=== PATIENT | female | born 1995 | race Two or more races ===

== ENCOUNTER 2017-01-02 23:40 | Emergency (ER) | payer MEDICAID ==
--- NOTE | 2017-01-03 01:06 | ER Document Report ---
ED GI/ - General Chief Complaint: Abdominal Pain Stated Complaint: ABDOMINAL PAIN Time seen by provider: 01:06 Mode of Arrival: Ambulatory Information source: Patient TRAVEL OUTSIDE OF THE [place] IN LAST 30 DAYS: No - HPI Patient complains to provider of: Dysuria, Pelvic pain Onset: Just prior to arrival Timing/Duration: Sudden Quality of pain: Achy, Fullness, Pressure Severity at maximum: Moderate Severity in ED: Moderate Pain Level: 3 Location: Suprapubic, Pelvis Vaginal bleeding (Compared to normal period): None Associated symptoms: Dysuria, Nausea Exacerbated by: Movement Relieved by: Denies Similar symptoms previously: No Recently seen / treated by doctor: No Notes: 01/03/17 02:30 Patient is a 21-year-old female presenting to the emergency room complaining of pain and pressure in her pelvis and suprapubic region, as well as nausea, states her symptoms started this evening after intercourse, she does report painful urination, states she had a small bowel movement this evening as well and noted a small mom blood when wiping, she denies any diarrhea, no fevers, no vaginal discharge, no history of similar symptoms previously - Related Data Allergies/Adverse Reactions: No Known Allergies Allergy (Unverified 01/02/17 23:53) Past Medical History - General Information source: Patient - Social History Smoking Status: Never Smoker Chew tobacco use (# tins/day): No Frequency of alcohol use: None Drug Abuse: None Family History: Reviewed & Not Pertinent Patient has suicidal ideation: No Patient has homicidal ideation: No Renal/ Medical History: Denies: Hx Peritoneal Dialysis Review of Systems - Review of Systems Constitutional: No symptoms reported EENT: No symptoms reported Cardiovascular: No symptoms reported Respiratory: No symptoms reported Gastrointestinal: See HPI Genitourinary: See HPI Female Genitourinary: See HPI Musculoskeletal: No symptoms reported Skin: No symptoms reported Hematologic/Lymphatic: No symptoms reported Neurological/Psychological: No symptoms reported -: Yes All other systems reviewed and negative Physical Exam - Vital signs Vitals: Temp Pulse Resp BP Pulse Ox 98.0 F 98 H 18 123/69 100 01/02/17 23:46 01/02/17 23:46 01/02/17 23:46 01/02/17 23:46 01/02/17 23:46 Interpretation: Normal - General General appearance: Appears well, Alert - HEENT Head: Normocephalic, Atraumatic Eyes: Normal Pupils: PERRL - Respiratory Respiratory status: No respiratory distress Chest status: Nontender Breath sounds: Normal Chest palpation: Normal - Cardiovascular Rhythm: Regular Heart sounds: Normal auscultation Murmur: No - Abdominal Inspection: Normal Distension: No distension Bowel sounds: Normal Tenderness: Tender - Suprapubic Organomegaly: No organomegaly - Back Back: Normal, Nontender - Extremities General upper extremity: Normal inspection, Nontender, Normal color, Normal ROM , Normal temperature General lower extremity: Normal inspection, Nontender, Normal color, Normal ROM , Normal temperature, Normal weight bearing. No: Ruthie's sign - Neurological Neuro grossly intact: Yes Cognition: Normal Orientation: AAOx4 Leisenring Coma Scale Eye Opening: Spontaneous [place]isen[place] Coma Scale Verbal: Oriented Dwayne Coma Scale Motor: Obeys Commands Leisenring Coma Scale Total: 15 Speech: Normal Motor strength normal: LUE, RUE, LLE, RLE Sensory: Normal - Psychological Associated symptoms: Normal affect, Normal mood - Skin Skin Temperature: Warm Skin Moisture: Dry Skin Color: Normal Course - Re-evaluation Re-evalutation: 01/03/17 02:31 Lab and imaging findings discussed with patient at bedside which are consistent with a urinary tract infection and a right ovarian cyst, patient was provided with antibiotics and pain medication as well as information for follow-up and advised to return if symptoms worsen, patient acknowledges understanding and agreement with this plan - Vital Signs Vital signs: Temp Pulse Resp BP Pulse Ox 98.0 F 92 H 18 123/69 100 01/02/17 23:47 01/02/17 23:47 01/02/17 23:47 01/02/17 23:47 01/02/17 23:47 - Laboratory Result Diagrams: 01/03/17 00:45 01/03/17 00:45 Laboratory results interpreted by me: 01/03/17 01/03/17 01/03/17 00:45 00:45 00:45 WBC 17.4 H Seg Neutrophils % 86.2 H Lymphocytes % 8.2 L Absolute Neutrophils 15.0 H AST 36 H Urine Ketones TRACE H Urine Nitrite POSITIVE H - Diagnostic Test Radiology reviewed: Image reviewed, Reports reviewed Discharge - Discharge Clinical Impression: Urinary tract infection Qualifiers: Urinary tract infection type: site unspecified Hematuria presence: without hematuria Qualified Code(s): N39.0 - Urinary tract infection, site not specified Ovarian cyst Qualifiers: Laterality: right Qualified Code(s): N83.201 - Unspecified ovarian cyst, right side Condition: Stable Disposition: HOME, SELF-CARE Instructions: Urinary Tract Infection ([facility]), Ovarian Cyst ([facility]), [facility] Additional Instructions: Follow up with your primary care provider and [facility] in one to 2 days. Return to the emergency room immediately if symptoms worsen or any additional concerns. Prescriptions: Cephalexin Monohydrate [Keflex 500 mg Capsule] 500 mg PO BID #20 capsule Hydrocodone/Acetaminophen [Hydrocodon-Acetaminophen 5-325] 1 each PO Q6 #20 tablet
[2017-01-03 01:08] LABS: ABSOLUTE LYMPHOCYTES (AUTO) 1.4 10^3/uL (0.5-4.7); ABSOLUTE MONOCYTES (AUTO) 0.9 10^3/uL (0.1-1.4); BASOPHILS % (AUTO) 0.2 % (0-2); EOSINOPHILS % (AUTO) 0.1 % (0-6); HEMATOCRIT 40.5 % (36.0-47.0); HGB HCT DIFFERENCE 1.5; LYMPHOCYTES % (AUTO) 8.2 % (13-45); MEAN CORPUSCULAR HEMOGLOBIN 32.1 pg (27.0-33.4); MEAN CORPUSCULAR HGB CONC 34.5 g/dL (32.0-36.0); MEAN CORPUSCULAR VOLUME 93 fl (80-97); MONOCYTES % (AUTO) 5.3 % (3-13); RED BLOOD COUNT 4.36 10^6/uL (3.72-5.28); RED CELL DISTRIBUTION WIDTH 12.7 % (11.5-14.0); SEGMENTED NEUTROPHILS % (AUTO) 86.2 % (42-78); WHITE BLOOD COUNT 17.4 10^3/uL (4.0-10.5)
[2017-01-03 01:12] LABS: ALANINE AMINOTRANSFERASE 19 U/L (5-35); ALBUMIN 4.6 g/dL (3.7-5.6); ALKALINE PHOSPHATASE 107 U/L (50-135); ANION GAP 10 (5-19); ASPARTATE AMINO TRANSFERASE 36 U/L (5-30); BILIRUBIN,TOTAL 0.5 mg/dL (0.2-1.3); BLOOD UREA NITROGEN 19 mg/dL (7-20); CALCIUM 10.2 mg/dL (8.4-10.2); CARBON DIOXIDE 27 mmol/L (22-30); CHLORIDE 103 mmol/L (98-107); CREATININE RESULT 0.73 mg/dL (0.52-1.25); GLUCOSE 110 mg/dL (75-110); LIPASE 46.9 U/L (23-300); SODIUM 140.3 mmol/L (137-145); TOTAL PROTEIN 8.1 g/dL (6.3-8.2)
[2017-01-03 01:22] LABS: APPEARANCE,URINE SLIGHTLY-CLOUDY; BILIRUBIN,URINE NEGATIVE (NEGATIVE); GLUCOSE, URINE NEGATIVE (NEGATIVE); KETONES,URINE TRACE mg/dL (NEGATIVE); LEUKOCYTE ESTERASE,URINE NEGATIVE (NEGATIVE); NITRITE,URINE POSITIVE (NEGATIVE); PROTEIN,URINE NEGATIVE (NEGATIVE); URINE SPECIFIC GRAVITY 1.018; UROBILINOGEN,URINE NEGATIVE mg/dL (<2.0)
[2017-01-03] MEDS ORDERED: CEPHALEXIN 500 MG CAPSULE PO ONE (02:10)
[2017-01-03] MEDS ORDERED: HYDROCODONE/ACETAMINOPHEN 5-325 MG 6 TAB/DSPK PO PRN (02:10)
[2017-01-03 03:58] VITALS: BP 109/63
== END 2017-01-03 03:58 | disposition home or self-care (01) ==
LOC: ER 23:40
DX: N39.0 Urinary tract infection, site not specified (principal); N83.201 Unspecified ovarian cyst, right side; R30.0 Dysuria; R10.2 Pelvic and perineal pain; R11.0 Nausea
CPT/HCPCS: 36415; 76830; 80053; 81001; 81025; 83690; 85025; 93976; 99284